=== PATIENT | male | born 1990 | race African-American/Black ===

== ENCOUNTER 2016-08-18 15:26 | Emergency (ER) | payer OTHER ==
[~2016-08-18] VITALS: Ht 165.1 cm; Wt 57.6 kg
[~2016-08-18 15:26] MED LIST: ABILIFY2 MG ORAL; ATRIPLA TABLET1 EAC1 ORAL; IBUPROFEN600 MG ORAL; NKM; PREMPHASE 0.621 EACH PO
--- NOTE | 2016-08-18 16:08 | Emergency Room Report ---
History of Present Illness General Chief Complaint: General Complaint Source: Patient Present Illness HPI Patient comes in complaining that he is likely milk from his thighs and that he is the first of a new species and that he just gave to the first of his new species. Patient has no specific complaints outside of abnormal from his thighs. Patient states there are no other modifying factors for his complaints. States he does not take medication and denies any illicit drug use. Allergies: Coded Allergies: RISPERIDONE (Verified Allergy, Unknown, 09/13/15) Patient History Past Medical History: see triage record Past Surgical History: unable to obtain Pertinent Family History: unable to obtain Reviewed Nursing Documentation: PMH: Agreed, PSxH: Agreed Nursing Documentation-PMH Hx Cardiac Problems: Yes - HIV Review of Systems All Other Systems: negative except mentioned in HPI Physical Exam Vital Signs Date Time Temp Pulse Resp B/P Pulse Ox O2 Delivery O2 Flow Rate FiO2 08/18/16 15:35 97.5 101 22 119/72 96 Room Air Sp02 EP Interpretation: reviewed, normal General Appearance: no apparent distress, alert, GCS 15, non-toxic, thin Head: normocephalic, atraumatic Eyes: bilateral eye normal inspection ENT: normal ENT inspection Neck: normal inspection Respiratory: no respiratory distress, speaking full sentences, other - gynocomastia Cardiovascular #1: normal capillary refill Musculoskeletal: gait/station normal Neurologic: alert, oriented x3, responsive, motor strength/tone normal, sensory intact Psychiatric: other - Patient with anxious mood and flight of ideas. Patient is delusional and hallucinating and speaking to himself. Patient is observed in self conversation and slapping himself in the face. Skin: normal inspection, no rash Medical Decision Making PA Attestation Dr. Gale my supervising physician with whom patient management has been discussed with. Diagnostic Impression: Primary Impression: Hallucinations Additional Impression: Hallucinogen delusional disorder ER Course Patient came in with obvious psychiatric episode. Patient was being evaluated and I had stepped away to get consult with Dr. Maravilla and to place lab orders, the patient had walked outside saying he was going to have a cigarette and then eloped. I was not able to fully assess the patient, however, DDx included but not limited to drug use, schizophrenia, acute psychotic episode, bipolar, delusional disorder, anatomic lesion, metabolic illness, infection, vitamin deficiency. Chest X-Ray Diagnostic Results Chest X-Ray Ordered: No Last Vital Signs Date Time Temp Pulse Resp B/P Pulse Ox O2 Delivery O2 Flow Rate FiO2 08/18/16 15:35 97.5 101 22 119/72 96 Room Air Disposition: ELOPED Condition: Unknown ROSEMARIE MERINO Aug 18, 2016 16:08
[2016-08-18 16:32] VITALS: BP 122/69
[2016-08-18 16:36] VITALS: BP 122/69
== END 2016-08-18 16:36 | disposition left against medical advice (07) ==
LOC: EMR 15:53
DX: R44.3 Hallucinations, unspecified (principal); F22 Delusional disorders; F41.9 Anxiety disorder, unspecified
CPT/HCPCS: 99283

== ENCOUNTER 2019-06-18 01:00 | Emergency (ER) | payer MEDICAID, OTHER ==
[~2019-06-18] VITALS: Ht 167.6 cm; Wt 60.8 kg
[2019-06-18 01:10] VITALS: BP 116/70
--- NOTE | 2019-06-18 01:10 | NUR ---
ED Nurse Note: pT BROUGHT IN BY AMBULANCE FROM ST, PT C/O "NERVE DAMAGE" PT IS ERRATIC AND SPEALING NONSENSICAL. VSS, PT IS A&O X2, PT TALKS NON-STOP AND WILL NOT COOPERATE WITH CARE.
--- NOTE | 2019-06-18 01:23 | Emergency Room Report ---
History of Present Illness General Chief Complaint: Pain Source: Patient Present Illness HPI Disclaimer: Please note that this report is being documented using [employer] technology. This can lead to erroneous entry secondary to incorrect interpretation by the dictating instrument. HPI: 28-year-old male transitioning female history of schizophrenia, substance abuse and HIV presents for evaluation of generalized pain. Unable to obtain a clear history from the patient as he is thoughts are very tangential and has flight of ideas. She states he has a nervous system condition and is been affected over the past several months causing secretions to come from his nervous system come out of his pores and change his behavior, ambulation, thinking and affect all aspects of his life. 2 weeks ago he states a ring was removed from her right pinky finger because it was causing pressure necrosis. This was removed and an eschar has formed which he believes is 1 of the source of infection. She has multiple complaints mostly involving leakage of fluids and secretions from his muscles. He does not want to take any medications. She has been off his HIV medications for several years. He believes there is some sort of medical conspiracy to give him medication that she does not need. He denies SI/HI. He intermittently hears voices. Asking for somewhere to sleep as she was kicked out of a halfway recently. She is requesting something to eat and drink. Denies trauma. PMH: Schizophrenia, HIV PSH: Unable to obtain from patient Allergies: Risperidone mentioned in medical chart, unable to obtain from patient Social Hx: Reports alcohol and tobacco use Allergies: Coded Allergies: RISPERIDONE (Verified Allergy, Unknown, 09/13/15) COVID-19 Screening Contact w/high risk pt: No Recent Travel to affected area: No Experienced COVID-19 symptoms?: No Nursing Documentation-PMH Past Medical History: No Stated History Hx Cardiac Problems: Yes - HIV Review of Systems All Other Systems: limited - Due to flight of ideas and tangential thinking Physical Exam Vital Signs Date Time Temp Pulse Resp B/P (MAP) Pulse Ox O2 Delivery O2 Flow Rate FiO2 06/18/19 00:59 Room Air General: Awake and alert, agitated, flight of ideas, difficulty focusing HEENT: NC/AT. EOMI. moist mucous membranes Resp: Normal work of breathing. Skin: There is a circular callus in the shape of a ring around the right pinky finger with areas of healing skin and others of dried necrotic tissue. No sign of active infection. No purulent drainage. No surrounding edema or erythema. No warmth. MSK: Normal tone and bulk. Moving all extremities. No obvious deformity. Able to flex and extend all digits. Capillary refill in all digits less than 2 seconds. Brisk radial pulse. Neuro: Awake and alert. Agitated. Difficulty focusing and has flight of ideas and very tangential thinking. Denies SI/HI. Medical Decision Making Diagnostic Impression: Primary Impression: Delusions Additional Impression: Callus ER Course 28-year-old male transitioning to female presents with thoughts that all of his organ symptoms are in dysfunction of some kind. Overall, is difficult to pin down his exact reason for coming today aside from stating that she needs something to eat and a place to stay as she was kicked out of the halfway. She is very tangential in his thinking and delusional, implicating almost all organ systems in his complaints today. He has an area of callused and dried but noninfectious appearing skin around the right pinky finger where he states the ring was removed due to pressure ulcer approximately 2 weeks ago. Appears to be healing well without signs of active infection. We will obtain an x-ray to evaluate for retained foreign bodies or possible fracture dislocation though I have low suspicion. Will draw screening labs in anticipation for psychiatric placement. She denies suicidality or homicidality at this time. I see no indication for 5150. Laboratory Tests Test 06/18/19 01:30 White Blood Count 7.5 K/UL (4.8-10.8) Red Blood Count 4.90 M/UL (4.70-6.10) Hemoglobin 15.2 G/DL (14.2-18.0) Hematocrit 43.1 % (42.0-52.0) Mean Corpuscular Volume 88 FL (80-99) Mean Corpuscular Hemoglobin 31.1 PG (27.0-31.0) H Mean Corpuscular Hemoglobin Concent 35.3 G/DL (32.0-36.0) Red Cell Distribution Width 10.2 % (11.6-14.8) L Platelet Count 358 K/UL (150-450) Mean Platelet Volume 6.2 FL (6.5-10.1) L Neutrophils (%) (Auto) 66.6 % (45.0-75.0) Lymphocytes (%) (Auto) 25.5 % (20.0-45.0) Monocytes (%) (Auto) 6.5 % (1.0-10.0) Eosinophils (%) (Auto) 0.1 % (0.0-3.0) Basophils (%) (Auto) 1.3 % (0.0-2.0) Sodium Level 140 MMOL/L (136-145) Potassium Level 3.9 MMOL/L (3.5-5.1) Chloride Level 102 MMOL/L (98-107) Carbon Dioxide Level 29 MMOL/L (21-32) Anion Gap 10 mmol/L (5-15) Blood Urea Nitrogen 12 mg/dL (7-18) Creatinine 0.8 MG/DL (0.55-1.30) Estimated Glomerular Filtration Rate > 60 mL/min (>60) Glucose Level 97 MG/DL (74-106) Calcium Level 9.6 MG/DL (8.5-10.1) Total Bilirubin 0.2 MG/DL (0.2-1.0) Aspartate Amino Transferase (AST) 17 U/L (15-37) Alanine Aminotransferase (ALT) 26 U/L (12-78) Alkaline Phosphatase 63 U/L (46-116) Total Protein 8.7 G/DL (6.4-8.2) H Albumin 3.8 G/DL (3.4-5.0) Globulin 4.9 g/dL Albumin/Globulin Ratio 0.8 (1.0-2.7) L Salicylates Level 1.7 ug/mL (2.8-20) L Acetaminophen Level < 2 MCG/ML (10-30) L Serum Alcohol < 3 mg/dL Other X-Ray Diagnostic Results Other X-Ray Diagnostic Results : X-Ray ordered: Right hand # of Views/Limited Vs Complete: 3 View Indication: Pain Interpretation: no dislocation, no soft tissue swelling, no fractures Impression: No acute disease Electronically Signed by: Electronically signed by Dr. Yovanny Donnelly Reevaluation Time: 03:45 Last Vital Signs Date Time Temp Pulse Resp B/P (MAP) Pulse Ox O2 Delivery O2 Flow Rate FiO2 06/18/19 00:59 Room Air Reevaluation Impression No evidence of fracture, dislocation or significant soft tissue swelling/ infection seen on x-rays of the hand. Labs have returned within normal limits. Patient refused to give urine. I offered to debride the callused skin around the right pinky finger but the patient however refused. Also offered voluntary placement in psychiatric facility to address mental health needs but again patient declined. Offered psychiatric medications to quiet the patient's delusions however she is adamant that she does not have a psychiatric disorder and does not want any medications at this time. She is requesting to sleep in the emergency department and to be admitted so that they can "rest." I explained that we would refer the patient to primary care clinic for wound reevaluation and primary care linkage to address multiple medical issues and provide psychiatric resources for the patient. She became very aggressive and agitated striking out at staff while I was explaining follow-up instructions. For patient and staff safety security was called and the patient was escorted from the emergency department. Disposition: HOME, SELF-CARE Condition: Stable Referrals: [facility],REFERRING (PCP) Yovanny Donnelly MD Jun 18, 2019 01:23
[2019-06-18 01:59] LABS: ANION GAP 10 mmol/L (5-15); BLOOD UREA NITROGEN 12 mg/dL (7-18); CALCIUM 9.6 MG/DL (8.5-10.1); CARBON DIOXIDE 29 MMOL/L (21-32); CHLORIDE 102 MMOL/L (98-107); CREATININE 0.8 MG/DL (0.55-1.30); POTASSIUM 3.9 MMOL/L (3.5-5.1); SODIUM 140 MMOL/L (136-145)
[2019-06-18 02:02] LABS: BASOPHILS % (AUTO) 1.3 % (0.0-2.0); EOSINOPHILS % (AUTO) 0.1 % (0.0-3.0); HEMATOCRIT 43.1 % (42.0-52.0); HEMOGLOBIN 15.2 G/DL (14.2-18.0); LYMPHOCYTES % (AUTO) 25.5 % (20.0-45.0); MEAN CORPUSCULAR VOLUME 88 FL (80-99); MONOCYTES % (AUTO) 6.5 % (1.0-10.0); NEUTROPHILS % (AUTO) 66.6 % (45.0-75.0); PLATELET COUNT 358 K/UL (150-450); RED CELL DISTRIBUTION WIDTH 10.2 % (11.6-14.8); WHITE BLOOD COUNT 7.5 K/UL (4.8-10.8)
[2019-06-18 02:04] LABS: ALANINE AMINOTRANSFERASE 26 U/L (12-78); ALBUMIN 3.8 G/DL (3.4-5.0); ALBUMIN/GLOBULIN RATIO 0.8 (1.0-2.7); ALKALINE PHOSPHATASE 63 U/L (46-116); ASPARTATE AMINO TRANSFERASE 17 U/L (15-37); BILIRUBIN,TOTAL 0.2 MG/DL (0.2-1.0)
--- NOTE | 2019-06-18 03:30 | NUR ---
ED Nurse Note: PT BECAME COMBATIVE AND VERBALLY ASSAULTIVE, REFUSING MEDICATIONS/DEBRIDEMENT AND ALL OTHER CARE, REFUSING TO LEAVE OR BE TREATED, IV DC'D, ERMD CLEARED FOR DISCHARGE INSTRUCTIONS GIVEN
[2019-06-18 03:50] VITALS: BP 116/70
--- NOTE | 2019-06-18 03:50 | NUR ---
ER DISCHARGE NOTE: Patient is cleared to be discharged per ERMD, on room air, with stable vital signs. pt was given DC instructions, pt was able to verbalize understanding, pt id band and iv site removed without complications. pt is able to ambulate with steady gait. pt took all belongings.
--- NOTE | 2019-06-18 04:30 | NUR ---
ED Nurse Note: pT ESCORTED OFF PROPERTY BY SECURITY, PT WILL NOT LEAVE AND IS VERBALLY COMBATIVE, FABIANO CALLED. AT 0510 PT TAKEN BY FABIANO.
--- NOTE | 2019-06-18 09:24 | Diagnostic Imaging Report ---
Indication: Swelling in right hand Technique: 3 views right hand Comparison: none Findings: No acute fractures. No dislocations. The joint spaces are preserved. Impression: Negative
== END 2019-06-18 03:50 | disposition home or self-care (01) ==
LOC: EDBD 01:00 → EDSEX 01:00 → EMR 01:11
DX: F22 Delusional disorders (principal); L84 Corns and callosities; F20.9 Schizophrenia, unspecified; B20 Human immunodeficiency virus [HIV] disease; Z88.8 Allergy status to other drugs, medicaments and biological substances
CPT/HCPCS: 36415; 73130; 80053; 85025; 96360; G0480; G0481; J7030; Z7502; 99284